=== PATIENT | male | born 1995 | race Caucasian/White ===

== ENCOUNTER 2022-12-29 11:59 | Inpatient (IN) | payer SELFPAY ==
[~2022-12-29] VITALS: Ht 172.7 cm; Wt 93.4 kg
[2022-12-29 12:05] VITALS: O2SAT 99
[2022-12-29] MEDS ORDERED: ONDANSETRON HCL 4MG/2ML INJ IV ONE (12:45)
[2022-12-29] MEDS ORDERED: SODIUM CHLORIDE 0.9% 1,000 ML IV ONE (12:45)
[2022-12-29 13:08] LABS: BASOPHILS % 0.5 % (0.0-2.0); EOSINOPHILS % 4.2 % (0.0-5.0); HEMOGLOBIN. 14.6 g/dL (14.0-18.0); MEAN CORPUSCULAR HEMOGLOBIN 30.9 pg (28.0-32.0); MEAN CORPUSCULAR VOLUME 89.1 fL (80.0-94.0); MEAN PLATELET VOLUME 7.1 fl (7.4-10.4); MONOCYTES % 9.9 % (2.0-8.0); NEUTROPHILS % 64.4 % (40.0-76.0); PLATELET 269 x1000/uL (130-400); RED BLOOD CELL COUNT 4.72 mill/uL (4.7-6.1); RED CELL DISTRIBUTION WIDTH 13.1 % (11.6-14.6)
[2022-12-29 13:17] LABS: CHLORIDE 105 mEq/L (98-107)
[2022-12-29] MEDS ORDERED: MORPHINE SULFATE 4 MG/ML CPJ (NOT FOR IM USE) IV ONE (13:30)
[2022-12-29 14:17] LABS: INR 1.1; PROTHROMBIN TIME 11.3 sec (9.6-11.0)
[2022-12-29 15:13] LABS: CLARITY URINE CLEAR (CLEAR); COLOR URINE YELLOW (YELLOW); KETONES URINE NEGATIVE (NEGATIVE); LEUKOCYTE ESTERASE URINE NEGATIVE (NEGATIVE); NITRITE URINE NEGATIVE (NEGATIVE); OCCULT BLOOD URINE NEGATIVE (NEGATIVE); PH URINE 7.5 (4.5-8.0); PROTEIN URINE NEGATIVE (NEGATIVE)
[2022-12-29 17:15] VITALS: BP 139/91; PULSE 105; RESP 20; TEMP 97.9
[2022-12-29 17:30] VITALS: BP 139/91; PULSE 104; RESP 20; TEMP 97.9
[2022-12-29] MEDS: SODIUM CHLORIDE 0.9% 1,000 ML IV SCH (18:11)
[2022-12-29] MEDS: MORPHINE SULFATE 2 MG/ML CPJ (NOT FOR IM USE) IV PRN (18:11)
[2022-12-29] MEDS: ONDANSETRON HCL 4MG/2ML INJ IV PRN (18:11)
[2022-12-29] MEDS: PANTOPRAZOLE SODIUM 40 MG/VIAL IV SCH (18:11)
[2022-12-29 19:09] LABS: HEPATITIS B SURFACE ANTIGEN NEGATIVE
[2022-12-29] MEDS ORDERED: METOCLOPRAMIDE HCL 10MG/2ML VIAL IV PRN ×2 (19:15→21:00)
[2022-12-29 20:00] VITALS: BP 142/89; PULSE 93; RESP 20; TEMP 97.2
[2022-12-29] MEDS ORDERED: ACETAMINOPHEN 325MG TABLET PO PRN (21:00)
[2022-12-29] MEDS ORDERED: CLONIDINE 0.1MG TABLET PO PRN (21:00)
[2022-12-29] MEDS: CHLORDIAZEPOXIDE 25MG CAPSULE PO SCH (21:03)
[2022-12-29] MEDS: LORAZEPAM 2MG/ML CPJ IV PRN (21:03)
[2022-12-29 21:37] LABS: HEMATOCRIT 41.1 % (42.0-52.0); HEMOGLOBIN 14.2 g/dL (14.0-18.0)
[2022-12-29 21:45] LABS: *AMPHETAMINES SCREEN URINE NEGATIVE (NEGATIVE); *BARBITURATES SCREEN URINE NEGATIVE (NEGATIVE); *BENZODIAZEPINES SCREEN URINE NEGATIVE (NEGATIVE); *COCAINE SCREEN URINE NEGATIVE (NEGATIVE); CANNABINOID URINE SCREEN NEGATIVE (NEGATIVE); METHADONE URINE SCREEN NEGATIVE (NEGATIVE); OPIATES URINE SCREEN PRESUMTIVE POSITIVE (NEGATIVE); PHENCYCLIDINE URINE SCREEN NEGATIVE (NEGATIVE)
[2022-12-29] MEDS ORDERED: IOHEXOL-350 100 ML BOTTLE ONE (21:46)
[2022-12-29] MEDS ORDERED: MVI, ADULT NO.1 10 ML, FOLIC ACID 1 MG, THIAMINE HCL 100 MG in SODIUM CHLORIDE 0.9% 1,0... IV NR ×4 (22:00)
[2022-12-29] MEDS ORDERED: OCTREOTIDE 1,000 MCG in SODIUM CHLORIDE 0.9% 100 ML IV SCH (22:00)
[2022-12-29] MEDS: LEVOFLOXACIN 500MG PREMIX 100 ML IV SCH (22:07)
[2022-12-29 22:28] LABS: HEPATITIS B SURFACE ANTIGEN NEGATIVE
[2022-12-30] VITALS: BP 150/100; PULSE 102; RESP 20; TEMP 97.9
[2022-12-30] MEDS: MORPHINE SULFATE 2 MG/ML CPJ (NOT FOR IM USE) IV PRN ×3 (00:10→16:43)
[2022-12-30] MEDS: ONDANSETRON HCL 4MG/2ML INJ IV PRN ×2 (00:11→22:17)
[2022-12-30 04:00] VITALS: BP 147/98; PULSE 101; RESP 20; TEMP 98.1
[2022-12-30] MEDS: CHLORDIAZEPOXIDE 25MG CAPSULE PO SCH ×3 (05:09→22:10)
[2022-12-30 08:00] VITALS: BP 154/93; PULSE 78; RESP 18; TEMP 97.8
[2022-12-30 08:02] LABS: BASOPHILS % 0.3 % (0.0-2.0); EOSINOPHILS % 1.9 % (0.0-5.0); HEMATOCRIT. 39.5 % (42.0-52.0); HEMOGLOBIN. 13.7 g/dL (14.0-18.0); LYMPHOCYTES % 9.6 % (20.0-50.0); MEAN CORPUSCULAR HEMOGLOBIN 31.1 pg (28.0-32.0); MEAN CORPUSCULAR VOLUME 89.3 fL (80.0-94.0); MEAN PLATELET VOLUME 7.8 fl (7.4-10.4); MONOCYTES % 7.9 % (2.0-8.0); NEUTROPHILS % 80.3 % (40.0-76.0); PLATELET 190 x1000/uL (130-400); RED BLOOD CELL COUNT 4.42 mill/uL (4.7-6.1)
[2022-12-30 08:11] LABS: CHLORIDE 101 mEq/L (98-107)
[2022-12-30 09:23] LABS: FOLIC ACID (FOLATE) SERUM >20 ng/mL ng/mL (>5.38); VITAMIN B12 SERUM 396 pg/mL (211-911)
[2022-12-30] MEDS: PANTOPRAZOLE SODIUM 40 MG/VIAL IV SCH ×2 (09:27→16:43)
[2022-12-30] MEDS: NICOTINE 21MG PATCH TD SCH (09:27)
[2022-12-30] MEDS: SODIUM CHLORIDE 0.9% 1,000 ML IV SCH ×3 (09:28→22:42)
[2022-12-30 12:00] VITALS: BP 155/91; PULSE 85; RESP 20; TEMP 97.8
[2022-12-30 16:00] VITALS: BP 148/99; PULSE 99; RESP 20; TEMP 98.2
[2022-12-30] MEDS ORDERED: NALOXONE HCL 0.4MG/ML VIAL IV PRN (16:15)
[2022-12-30 16:58] LABS: HEMATOCRIT 45.6 % (42.0-52.0); HEMOGLOBIN 15.2 g/dL (14.0-18.0)
[2022-12-30 20:00] VITALS: BP 149/104; PULSE 94; RESP 18; TEMP 98
[2022-12-30] MEDS: SUCRALFATE 1 G/10 ML UDC PO SCH (22:10)
[2022-12-30] MEDS: LEVOFLOXACIN 500MG PREMIX 100 ML IV SCH (22:11)
[2022-12-30] MEDS: LORAZEPAM 2MG/ML CPJ IV PRN (22:17)
[2022-12-31] VITALS: BP 143/89; PULSE 92; RESP 18; TEMP 97.9
[2022-12-31 03:22] LABS: CHLORIDE 102 mEq/L (98-107)
[2022-12-31 03:44] LABS: BASOPHILS % 0.4 % (0.0-2.0); HEMATOCRIT. 39.9 % (42.0-52.0); HEMOGLOBIN. 13.8 g/dL (14.0-18.0); LYMPHOCYTES % 12.5 % (20.0-50.0); MEAN CORPUSCULAR HEMOGLOBIN 31.1 pg (28.0-32.0); MEAN CORPUSCULAR VOLUME 89.6 fL (80.0-94.0); MEAN PLATELET VOLUME 7.7 fl (7.4-10.4); MONOCYTES % 7.9 % (2.0-8.0); NEUTROPHILS % 74.2 % (40.0-76.0); PLATELET 186 x1000/uL (130-400); RED BLOOD CELL COUNT 4.45 mill/uL (4.7-6.1); RED CELL DISTRIBUTION WIDTH 12.8 % (11.6-14.6)
[2022-12-31 03:52] LABS: INR 1.1
[2022-12-31 04:00] VITALS: BP 148/96; PULSE 89; RESP 18; TEMP 98
[2022-12-31] MEDS: CHLORDIAZEPOXIDE 25MG CAPSULE PO SCH ×2 (06:00→14:00)
[2022-12-31] MEDS: SUCRALFATE 1 G/10 ML UDC PO SCH ×2 (07:40→12:55)
[2022-12-31 07:55] VITALS: BP 137/94; PULSE 84; RESP 20; TEMP 97.7
[2022-12-31] MEDS: MORPHINE SULFATE 2 MG/ML CPJ (NOT FOR IM USE) IV PRN (08:58)
[2022-12-31] MEDS: SODIUM CHLORIDE 0.9% 1,000 ML IV SCH (10:00)
[2022-12-31] MEDS: NICOTINE 21MG PATCH TD SCH (10:51)
[2022-12-31] MEDS: PANTOPRAZOLE SODIUM 40 MG/VIAL IV SCH ×2 (10:51→17:00)
[2022-12-31 11:55] VITALS: BP 140/94; PULSE 91; RESP 18; TEMP 97.5
[2022-12-31] MEDS ORDERED: MIDAZOLAM HCL 2 MG/2 ML VIAL ONE (13:52)
[2022-12-31] MEDS ORDERED: LIDOCAINE HCL 1% 20ML VIAL (Pyxis) INJ ONE (13:53)
[2022-12-31] MEDS ORDERED: PROPOFOL 200MG/20ML VIAL IV ONE ×2 (13:57→14:08)
[2022-12-31] MEDS ORDERED: PANT40TA51 MT (17:26)
[2022-12-31] MEDS ORDERED: L25 PO (17:26)
== END 2022-12-31 17:50 | disposition home or self-care (01) | DRG 241 ==
LOC: ER 11:59 → 7WST 15:38 → EDBEDREQTM 15:41 → EDBEDREQ 15:41
PROVIDERS: ADMIT Internal Medicine; ATTEND Internal Medicine
PROC: 0DB68ZX Excision of Stomach, Via Natural or Artificial Opening Endoscopic, Diagnostic (ICD-10-PCS; principal; 2022-12-31)
DX: K29.71 Gastritis, unspecified, with bleeding (principal); K76.0 Fatty (change of) liver, not elsewhere classified; E87.1 Hypo-osmolality and hyponatremia; F17.210 Nicotine dependence, cigarettes, uncomplicated; K20.90 Esophagitis, unspecified without bleeding; R00.0 Tachycardia, unspecified; K52.9 Noninfective gastroenteritis and colitis, unspecified
CPT/HCPCS: 36415; 71045; 71275; 74174; 76700; 80053; 80305; 81003; 82140; 82248; 82607; 82746; 83880; 84484; 85014; 85018; 85025; 85044; 86705; 86709; 86803; 86850; 86900; 87340; 87426; 88305; 93005; 99285; C9113; J1956; J2060; J2250; J2270; J2354; J2405; J2704; J2765; J3411; J3490; J7030; J7050; Q9967